=== PATIENT | female | born 1985 | race Caucasian/White ===

== ENCOUNTER 2021-08-21 05:53 | Day surgery (SDCO) | payer OTHER ==
[~2021-08-21] VITALS: Ht 172.7 cm; Wt 84.0 kg
[2021-08-21 06:36] LABS: BASOPHIL 0.1 % (0-2); HCT 41.8 % (37.0-47.0); HGB 14.1 g/dl (12.5-16.0); LYMPHOCYTE 7.5 % (15-48); MCH 28.8 pg (25.0-31.0); MCHC 33.7 g/dL (32.0-36.0); MCV 85.3 fL (78.0-100.0); MONOCYTE 5.1 % (0-12); MPV 9.9 fL (6.0-9.5); NRBC 0; PLT 174 K/uL (150-400); RDW 12.5 % (11.5-14.0); WBC 6.8 K/uL (4.0-10.5)
[2021-08-21 07:53] LABS: BILIRUBIN - TOTAL 0.8 mg/dL (0.2-1.0); BUN/CREAT RATIO (CALC) 32.2 RATIO; CREATININE 0.59 mg/dL (0.51-0.95); GLOBULIN (CALCULATION) 3.3 g/dL; POTASSIUM 3.4 mmol/L (3.5-5.1); TOTAL PROTEIN 7.3 g/dL (6.4-8.2)
[2021-08-21 09:20] LABS: BILIRUBIN NEGATIVE (NEGATIVE); BLOOD NEGATIVE Ery/uL (NEGATIVE); CLARITY CLEAR (CLEAR); COLOR YELLOW (YELLOW); GLUCOSE (U) NORMAL (NORMAL); LEUKOCYTES NEGATIVE Leu/uL (NEGATIVE); NITRITE NEGATIVE (NEGATIVE); PROTEIN NEGATIVE (NEGATIVE); SPECIFIC GRAVITY 1.015 (1.001-1.030); UROBILINOGEN 0.2 mg/dL (0.2-1.0)
[2021-08-21] MEDS ORDERED: ZOLOFT50 M1 PO (22:05)
[2021-08-21] MEDS ORDERED: MULTIVITAMIN1 EACH PO (22:07)
[2021-08-21] MEDS ORDERED: COLACE100 MG PO (22:08)
--- NOTE | 2021-08-22 06:07 | NUR ---
WARM WIPES GIVEN WITH INSTRUCTIONS ON BATHING FOR SURGERY PREP, STATES UNDERSTANDING.
[2021-08-22 07:54] LABS: BASOPHIL 0.3 % (0-2); EOSINOPHIL 1.1 % (0-5); HCT 35.7 % (37.0-47.0); HGB 11.8 g/dl (12.5-16.0); LYMPHOCYTE 31.2 % (15-48); MCHC 33.1 g/dL (32.0-36.0); MCV 87.7 fL (78.0-100.0); MONOCYTE 13.2 % (0-12); MPV 10.4 fL (6.0-9.5); NEUTROPHIL 53.9 % (41-80); NRBC 0; PLT 157 K/uL (150-400); RBC 4.07 M/uL (4.20-5.40); RDW 12.7 % (11.5-14.0); WBC 3.8 K/uL (4.0-10.5)
[2021-08-22 08:19] LABS: BUN/CREAT RATIO (CALC) 18.3 RATIO; CREATININE 0.6 mg/dL (0.51-0.95); POTASSIUM 3.4 mmol/L (3.5-5.1)
[2021-08-22 11:06] LABS: HCG (URINE) SCREEN NEGATIVE (NEGATIVE)
[2021-08-22 11:22] LABS: INR 1.12 (0.9-1.2); PROTHROMBIN TIME 13.8 SECONDS (11.8-13.4)
[2021-08-22 11:23] LABS: PTT 34.8 SECONDS (24.4-34.7)
[2021-08-22] MEDS ORDERED: PERCOCET 5-3251 EACH PO (15:41)
[2021-08-22] MEDS ORDERED: ONDANSETRON ODT4 MG PO (15:41)
== END 2021-08-22 18:19 | disposition home or self-care (01) ==
LOC: FER 05:53 → FMS 19:54
PROVIDERS: Internal Medicine; Nurse Practitioner; ADMIT Internal Medicine
DX: K81.2 Acute cholecystitis with chronic cholecystitis (principal); K82.8 Other specified diseases of gallbladder; Z20.822 Contact with and (suspected) exposure to COVID-19; Z87.448 Personal history of other diseases of urinary system; Z87.442 Personal history of urinary calculi; Z72.89 Other problems related to lifestyle
CPT/HCPCS: 36415; 71045; 76705; 78227; 80048; 80053; 81003; 83690; 84145; 84703; 85025; 85610; 85730; 93005; A9537; G0378; J1170; J1644; J2250; J2405; J2550; J2704; J2710; J3010; J7120; Q9967; U0002